=== PATIENT | female | born 1955 | race Caucasian/White ===

== ENCOUNTER → 2024-09-15 13:22 | Outpatient (CLI) | payer MEDICARE, MEDICAID, SELFPAY ==
[2024-09-15 19:57] LABS: Free T4, Direct Thyroxine 1.07 ng/dL (0.78-2.19)
[2024-09-15 20:11] LABS: Thyroid Stimulating Hormone 3.51 uIU/mL (0.47-4.68)
== END ==
PROVIDERS: Visit Provider Student in an Organized Health Care Education/Training Program
DX: R63.5 Abnormal weight gain (principal)
CPT/HCPCS: 84439; 84443

== ENCOUNTER → 2024-09-16 | Outpatient (CLI) | payer MEDICARE, MEDICAID, SELFPAY ==
[2024-09-23 18:38] LABS: Cortisol, Saliva 1 sample 0.058 ug/dL (.)
== END ==
PROVIDERS: Visit Provider Student in an Organized Health Care Education/Training Program
DX: R63.5 Abnormal weight gain (principal); M88.9 Osteitis deformans of unspecified bone
CPT/HCPCS: 82533